=== PATIENT | male | born 1980 | race American Indian/Alaskan Native ===

== ENCOUNTER 2016-09-17 15:36 | Outpatient (CLI) | payer OTHER ==
--- NOTE | 2016-09-18 08:48 | XRay Report ---
Lumbar spine series: Back pain. Multilevel traction spurs are present from L3-L5. There is moderate narrowing of the L5-S1 interspace. The vertebral height, alignment, and interspaces are preserved. The apophyseal joints are generally aligned and preserved. The bones are well-mineralized. Impressions: Lower lumbar degenerative changes as detailed above.
== END 2016-09-17 15:37 | disposition home or self-care (01) ==
LOC: XRAY 15:36
PROVIDERS: ATTEND Internal Medicine
DX: M47.816 Spondylosis without myelopathy or radiculopathy, lumbar region (principal)
CPT/HCPCS: 72110